=== PATIENT | male | born 1955 | race Caucasian/White ===

== ENCOUNTER 2017-05-07 13:00 | Inpatient (IN) | payer MEDICARE, OTHER ==
[~2017-05-07] VITALS: Ht 182.9 cm; Wt 77.3 kg
[2017-05-07] MEDS ORDERED: OXYcodone/APAP 10/325MG TABLET ONE (13:27)
[2017-05-07] MEDS ORDERED: OXYcodone/APAP 10/325MG TABLET PO ONE (13:30)
[2017-05-07] MEDS ORDERED: SODIUM CHLORIDE FLUSH 10ML SYR IVF ONE (13:30)
[2017-05-07 14:16] LABS: BASOPHILS # (AUTO) 0.07 x10^3/uL (0-0.1); BASOPHILS % (AUTO) 1 % (0-1); EOSINOPHILS # (AUTO) 0.27 x10^3/uL (0-0.4); EOSINOPHILS % (AUTO) 4 % (1-7); HCT (SEDRATE) 40.7 % (39.2-51.8); LYMPHOCYTES # (AUTO) 1.95 x10^3/uL (1-3.4); LYMPHOCYTES % (AUTO) 25 % (22-44); MD NO; MEAN CORPUSCULAR HEMOGLOBIN 31.3 pg (27.5-34.5); MEAN CORPUSCULAR HGB CONC 34.5 g/dL (33.2-36.2); MEAN CORPUSCULAR VOLUME 90.7 fL (81-97); MEAN PLATELET VOLUME 7.6 fL (7.4-10.4); MONOCYTES # (AUTO) 0.54 x10^3/uL (0.2-0.8); MONOCYTES % (AUTO) 7 % (2-9); NEUTROPHILS % (AUTO) 63 % (42-75); PLATELET COUNT 276 x10^3/uL (130-400); RED BLOOD COUNT 4.48 x10^6/uL (4.38-5.82); RED CELL DISTRIBUTION WIDTH 13.1 % (9.4-14.8)
[2017-05-07 14:23] LABS: INTERNATIONAL NORMALIZED RATIO 0.96 (0.93-1.1)
[2017-05-07 14:32] LABS: ALANINE AMINOTRANSFERASE 14 U/L (12-78); ALBUMIN 3.2 g/dL (3.4-5.0); ANION GAP 9 mmol/L (5-15); C-REACTIVE PROTEIN, QUANT 0.34 mg/dL (0.02-0.49); CALCIUM 8.4 mg/dL (8.5-10.1); CHLORIDE 101 mmol/L (98-107); CREATININE 1.26 mg/dL (0.7-1.3)
[2017-05-07 14:34] LABS: ALKALINE PHOSPHATASE 94 U/L (45-117); BILIRUBIN,TOTAL 0.3 mg/dL (0.2-1.0)
[2017-05-07 15:32] LABS: SEDIMENTATION RATE 26 mm/hr (0-10)
[2017-05-07] MEDS ORDERED: INSULIN REGULAR 100 UNITS/ML, 3ML VIAL SQ-INSULIN ONE (16:00)
[2017-05-07] MEDS ORDERED: VANCOMYCIN PER PHARMACY MC ONE (16:00)
[2017-05-07] MEDS ORDERED: VANCOMYCIN 1,600 MG in SODIUM CHLORIDE 0.9% 250 ML IV ONE (16:30)
[2017-05-07] MEDS ORDERED: INSULIN REGULAR 100 UNITS/ML, 3ML VIAL ONE (16:36)
[2017-05-07] MEDS ORDERED: ATOR40TA78 PO (17:18)
[2017-05-07] MEDS ORDERED: METF500T4 PO (17:18)
[2017-05-07] MEDS ORDERED: DOCU100C33 PO (17:18)
[2017-05-07] MEDS ORDERED: CLOP75TA PO (17:18)
[2017-05-07] MEDS ORDERED: GABA600T2 PO (17:18)
[2017-05-07] MEDS ORDERED: ISOS10TA2 PO (17:18)
[2017-05-07] MEDS ORDERED: CHOL2000 PO (17:18)
[2017-05-07] MEDS ORDERED: IBUP200T49 PO (17:18)
[2017-05-07] MEDS ORDERED: AMIT25TA PO (17:18)
[2017-05-07] MEDS ORDERED: HYDR50TA13 PO (17:18)
[2017-05-07] MEDS ORDERED: GLIP10TA13 PO (17:18)
[2017-05-07] MEDS: SODIUM CHLORIDE 0.9% 1,000 ML IV SCH (18:11)
[2017-05-07] MEDS ORDERED: TEMAZEPAM 15 MG CAPSULE PO PRN (18:30)
[2017-05-07] MEDS ORDERED: ONDANSETRON 2MG/ML, 2ML IVPush PRN (18:30)
[2017-05-07] MEDS ORDERED: ACETAMINOPHEN 325 MG TABLET PO PRN (18:30)
[2017-05-07] MEDS: METOPROLOL TARTRATE 25 MG TABLET PO SCH (18:30)
[2017-05-07] MEDS ORDERED: hydrALAzine 20 MG/ML, 1ML IVPush PRN (18:30)
[2017-05-07 18:49] LABS: FREE T4 (FREE THYROXINE) 1.13 ng/dL (0.76-1.46); THYROID STIMULATING HORMONE 1.21 mIU/L (0.358-3.740)
[2017-05-07] MEDS ORDERED: METOPROLOL TARTRATE 50 MG TABLET ONE (20:55)
[2017-05-07] MEDS ORDERED: ENOXAPARIN 40 MG/0.4 ML ONE (20:56)
[2017-05-07] MEDS ORDERED: SIMVASTATIN 20 MG TABLET PO SCH (21:00)
[2017-05-07] MEDS: GABAPENTIN 300 MG CAPSULE PO SCH (21:28)
[2017-05-07] MEDS: AMITRIPTYLINE 25 MG TABLET PO SCH (21:34)
[2017-05-07] MEDS: ENOXAPARIN 40 MG/0.4 ML SQ SCH (21:39)
[2017-05-07 23:30] VITALS: BP 105/66
[2017-05-08] MEDS: LINEZOLID PMX 600MG/300ML 300 ML IV SCH ×3 (00:11→21:23)
[2017-05-08] MEDS: INSULIN ASPART 100 UNITS/ML, PEN SQ-INSULIN SCH ×5 (00:25→21:00)
[2017-05-08] MEDS: ATORVASTATIN 40 MG TABLET PO SCH ×2 (00:37→21:00)
[2017-05-08] MEDS: morphine SULFATE 10 MG/ML, 1ML IVPush PRN ×2 (00:37→09:06)
[2017-05-08 02:00] VITALS: BP 122/72
[2017-05-08 05:40] LABS: BASOPHILS # (AUTO) 0.08 x10^3/uL (0-0.1); BASOPHILS % (AUTO) 1 % (0-1); EOSINOPHILS % (AUTO) 6 % (1-7); LYMPHOCYTES # (AUTO) 1.68 x10^3/uL (1-3.4); LYMPHOCYTES % (AUTO) 25 % (22-44); MD NO; MEAN CORPUSCULAR HEMOGLOBIN 31.5 pg (27.5-34.5); MEAN CORPUSCULAR HGB CONC 34.6 g/dL (33.2-36.2); MEAN CORPUSCULAR VOLUME 90.9 fL (81-97); MEAN PLATELET VOLUME 7.9 fL (7.4-10.4); MONOCYTES # (AUTO) 0.39 x10^3/uL (0.2-0.8); MONOCYTES % (AUTO) 6 % (2-9); NEUTROPHILS # (AUTO) 4.17 x10^3/uL (1.8-6.8); NEUTROPHILS % (AUTO) 62 % (42-75); PLATELET COUNT 239 x10^3/uL (130-400); RED BLOOD COUNT 4.59 x10^6/uL (4.38-5.82); RED CELL DISTRIBUTION WIDTH 12.8 % (9.4-14.8)
[2017-05-08] MEDS: METOPROLOL TARTRATE 25 MG TABLET PO SCH ×2 (06:08→17:55)
[2017-05-08 06:16] LABS: ALANINE AMINOTRANSFERASE 17 U/L (12-78); ALBUMIN 2.7 g/dL (3.4-5.0); ANION GAP 10 mmol/L (5-15); CALCIUM 8.2 mg/dL (8.5-10.1); CHLORIDE 111 mmol/L (98-107); CHOLESTEROL, TOTAL 144 mg/dL (140-239); CREATININE 0.82 mg/dL (0.7-1.3)
[2017-05-08 06:18] LABS: ALKALINE PHOSPHATASE 104 U/L (45-117); BILIRUBIN,TOTAL 0.3 mg/dL (0.2-1.0); CHOL/HDL RATIO 4.5; HDL CHOL % 22 % (26-37); HDL CHOLESTEROL (DIRECT) 32 mg/dL (40-60); LDL CHOLESTEROL,CALCULATED 63 mg/dL (54-169); TOTAL PROTEIN 6.6 g/dL (6.4-8.2); TRIGLYCERIDES 243 mg/dL (50-200); VLDL CHOLESTEROL 49 mg/dL (0-25)
[2017-05-08 07:02] LABS: HEMOGLOBIN A1C 10.4 % (4.2-6.3)
[2017-05-08 08:00] VITALS: BP 122/72
[2017-05-08] MEDS: DOCUSATE 100 MG CAPSULE PO SCH (10:43)
[2017-05-08] MEDS: SODIUM CHLORIDE 0.9% 1,000 ML IV SCH ×3 (10:43→21:24)
[2017-05-08] MEDS: ISOSORBIDE DINITRATE 10 MG TABLET PO SCH (10:44)
[2017-05-08] MEDS: GABAPENTIN 300 MG CAPSULE PO SCH ×3 (10:44→21:24)
[2017-05-08] MEDS: CHOLECALCIFEROL 1,000 UNIT TABLET PO SCH (10:44)
[2017-05-08] MEDS: CLOPIDOGREL 75 MG TABLET PO SCH (10:44)
[2017-05-08 14:34] VITALS: BP 92/48
[2017-05-08] MEDS: ENOXAPARIN 40 MG/0.4 ML SQ SCH (17:59)
[2017-05-08 20:00] VITALS: BP 99/59
[2017-05-08] MEDS: AMITRIPTYLINE 25 MG TABLET PO SCH (21:24)
[2017-05-09 02:00] VITALS: BP 110/62
[2017-05-09] MEDS: METOPROLOL TARTRATE 25 MG TABLET PO SCH ×2 (05:17→18:11)
[2017-05-09 06:33] VITALS: BP 113/62
[2017-05-09 06:34] LABS: ANION GAP 7 mmol/L (5-15); CHLORIDE 112 mmol/L (98-107)
[2017-05-09 06:36] LABS: CREATININE 0.71 mg/dL (0.7-1.3)
[2017-05-09] MEDS: INSULIN ASPART 100 UNITS/ML, PEN SQ-INSULIN SCH ×4 (07:00→21:00)
[2017-05-09] MEDS: SODIUM CHLORIDE 0.9% 1,000 ML IV SCH ×2 (09:29→20:57)
[2017-05-09] MEDS: GABAPENTIN 300 MG CAPSULE PO SCH ×3 (09:29→22:02)
[2017-05-09] MEDS: DOCUSATE 100 MG CAPSULE PO SCH (09:29)
[2017-05-09] MEDS: CHOLECALCIFEROL 1,000 UNIT TABLET PO SCH (09:29)
[2017-05-09] MEDS: ISOSORBIDE DINITRATE 10 MG TABLET PO SCH (09:29)
[2017-05-09] MEDS: LINEZOLID PMX 600MG/300ML 300 ML IV SCH ×2 (09:29→22:02)
[2017-05-09] MEDS: CLOPIDOGREL 75 MG TABLET PO SCH (09:29)
[2017-05-09] MEDS: HYDROcodone/APAP 5/325 TABLET PO PRN ×2 (11:24→22:02)
[2017-05-09 13:47] VITALS: BP 98/60
[2017-05-09] MEDS: ENOXAPARIN 40 MG/0.4 ML SQ SCH (18:11)
[2017-05-09 19:31] VITALS: BP 101/61
[2017-05-09] MEDS: ATORVASTATIN 40 MG TABLET PO SCH (22:02)
[2017-05-09] MEDS: AMITRIPTYLINE 25 MG TABLET PO SCH (22:02)
[2017-05-10 02:46] VITALS: BP 126/69
[2017-05-10] MEDS: HYDROcodone/APAP 5/325 TABLET PO PRN (02:57)
[2017-05-10] MEDS: morphine SULFATE 10 MG/ML, 1ML IVPush PRN (03:24)
[2017-05-10 05:15] VITALS: BP 120/69
[2017-05-10] MEDS: METOPROLOL TARTRATE 25 MG TABLET PO SCH ×2 (07:18→18:20)
[2017-05-10 07:37] VITALS: BP 120/70
[2017-05-10] MEDS: DOCUSATE 100 MG CAPSULE PO SCH (09:18)
[2017-05-10] MEDS: CLOPIDOGREL 75 MG TABLET PO SCH (09:18)
[2017-05-10] MEDS: GABAPENTIN 300 MG CAPSULE PO SCH ×3 (09:19→21:57)
[2017-05-10] MEDS: SODIUM CHLORIDE 0.9% 1,000 ML IV SCH ×2 (09:19→18:22)
[2017-05-10] MEDS: CHOLECALCIFEROL 1,000 UNIT TABLET PO SCH (09:19)
[2017-05-10] MEDS: LINEZOLID PMX 600MG/300ML 300 ML IV SCH (09:19)
[2017-05-10] MEDS: INSULIN ASPART 100 UNITS/ML, PEN SQ-INSULIN SCH ×4 (09:20→21:58)
[2017-05-10] MEDS: ISOSORBIDE DINITRATE 10 MG TABLET PO SCH (09:21)
[2017-05-10 14:00] VITALS: BP 116/66
[2017-05-10] MEDS ORDERED: LINE600T37 PO (16:23)
[2017-05-10] MEDS ORDERED: METO25TA35 PO (16:23)
[2017-05-10 18:20] VITALS: BP 138/81
[2017-05-10] MEDS: ENOXAPARIN 40 MG/0.4 ML SQ SCH (18:20)
[2017-05-10 21:00] VITALS: BP 118/68
[2017-05-10] MEDS: AMITRIPTYLINE 25 MG TABLET PO SCH (21:57)
[2017-05-10] MEDS: ATORVASTATIN 40 MG TABLET PO SCH (21:57)
[2017-05-10] MEDS: LINEZOLID 600 MG TABLET PO SCH (21:58)
[2017-05-11 00:57] VITALS: BP 121/63
[2017-05-11] MEDS: SODIUM CHLORIDE 0.9% 1,000 ML IV SCH ×3 (01:00→16:46)
[2017-05-11 05:52] VITALS: BP 131/77
[2017-05-11] MEDS: METOPROLOL TARTRATE 25 MG TABLET PO SCH ×2 (06:14→18:37)
[2017-05-11] MEDS: ISOSORBIDE DINITRATE 10 MG TABLET PO SCH (08:36)
[2017-05-11] MEDS: GABAPENTIN 300 MG CAPSULE PO SCH ×3 (08:37→21:56)
[2017-05-11] MEDS: CLOPIDOGREL 75 MG TABLET PO SCH (08:37)
[2017-05-11] MEDS: INSULIN ASPART 100 UNITS/ML, PEN SQ-INSULIN SCH ×4 (08:37→22:37)
[2017-05-11] MEDS: CHOLECALCIFEROL 1,000 UNIT TABLET PO SCH (08:37)
[2017-05-11] MEDS: LINEZOLID 600 MG TABLET PO SCH ×2 (08:37→21:56)
[2017-05-11 08:51] VITALS: BP 134/76
[2017-05-11] MEDS: DOCUSATE 100 MG CAPSULE PO SCH (09:00)
[2017-05-11 14:00] VITALS: BP 134/70
[2017-05-11] MEDS: ENOXAPARIN 40 MG/0.4 ML SQ SCH (18:38)
[2017-05-11 21:13] VITALS: BP 132/75
[2017-05-11] MEDS: ATORVASTATIN 40 MG TABLET PO SCH (21:56)
[2017-05-11] MEDS: AMITRIPTYLINE 25 MG TABLET PO SCH (21:56)
[2017-05-12 00:34] VITALS: BP 126/73
[2017-05-12] MEDS: SODIUM CHLORIDE 0.9% 1,000 ML IV SCH ×3 (01:00→16:10)
[2017-05-12 06:09] VITALS: BP 145/74
[2017-05-12] MEDS: METOPROLOL TARTRATE 25 MG TABLET PO SCH ×2 (06:16→17:24)
[2017-05-12] MEDS: INSULIN ASPART 100 UNITS/ML, PEN SQ-INSULIN SCH ×4 (07:00→20:25)
[2017-05-12] MEDS: DOCUSATE 100 MG CAPSULE PO SCH (08:04)
[2017-05-12 08:25] VITALS: BP 146/75
[2017-05-12] MEDS: ISOSORBIDE DINITRATE 10 MG TABLET PO SCH (09:08)
[2017-05-12] MEDS: CLOPIDOGREL 75 MG TABLET PO SCH (09:08)
[2017-05-12] MEDS: LINEZOLID 600 MG TABLET PO SCH ×2 (09:08→20:23)
[2017-05-12] MEDS: GABAPENTIN 300 MG CAPSULE PO SCH ×3 (09:08→20:22)
[2017-05-12] MEDS: CHOLECALCIFEROL 1,000 UNIT TABLET PO SCH (09:08)
[2017-05-12] MEDS ORDERED: ONDANSETRON ODT 4 MG PO PRN (14:00)
[2017-05-12 15:49] VITALS: BP 115/65
[2017-05-12] MEDS: ENOXAPARIN 40 MG/0.4 ML SQ SCH (17:24)
[2017-05-12] MEDS: AMITRIPTYLINE 25 MG TABLET PO SCH (20:22)
[2017-05-12] MEDS: ATORVASTATIN 40 MG TABLET PO SCH (20:23)
[2017-05-12 21:30] VITALS: BP 131/75
[2017-05-13] MEDS: SODIUM CHLORIDE 0.9% 1,000 ML IV SCH ×2 (01:00→08:46)
[2017-05-13 02:03] VITALS: BP 114/72
[2017-05-13] MEDS: METOPROLOL TARTRATE 25 MG TABLET PO SCH (06:25)
[2017-05-13] MEDS: INSULIN ASPART 100 UNITS/ML, PEN SQ-INSULIN SCH ×2 (07:00→11:46)
[2017-05-13] MEDS: LINEZOLID 600 MG TABLET PO SCH (08:46)
[2017-05-13] MEDS: CHOLECALCIFEROL 1,000 UNIT TABLET PO SCH (08:46)
[2017-05-13] MEDS: ISOSORBIDE DINITRATE 10 MG TABLET PO SCH (08:47)
[2017-05-13] MEDS: GABAPENTIN 300 MG CAPSULE PO SCH (08:47)
[2017-05-13] MEDS: CLOPIDOGREL 75 MG TABLET PO SCH (08:47)
[2017-05-13] MEDS: DOCUSATE 100 MG CAPSULE PO SCH (08:47)
[2017-05-13] MEDS: HYDROcodone/APAP 5/325 TABLET PO PRN (13:16)
[2017-05-13 14:25] VITALS: BP 115/64
[2017-05-13] MEDS ORDERED: ISOS10TA2 PO (15:46)
[2017-05-13] MEDS ORDERED: METF500T4 PO (15:46)
== END 2017-05-13 16:59 | disposition home or self-care (01) | DRG 300 ==
LOC: ED 13:32 → EDIP 15:37 → 4WST 22:27
PROVIDERS: ADMIT Family Medicine; ATTEND Family Medicine
DX: E11.51 Type 2 diabetes mellitus with diabetic peripheral angiopathy without gangrene (principal); L03.116 Cellulitis of left lower limb; E11.621 Type 2 diabetes mellitus with foot ulcer; E87.2 Acidosis; E11.65 Type 2 diabetes mellitus with hyperglycemia; E11.00 Type 2 diabetes mellitus with hyperosmolarity without nonketotic hyperglycemic-hyperosmolar coma (NKHHC); L97.529 Non-pressure chronic ulcer of other part of left foot with unspecified severity; I10 Essential (primary) hypertension; E78.5 Hyperlipidemia, unspecified; I25.10 Atherosclerotic heart disease of native coronary artery without angina pectoris; J44.9 Chronic obstructive pulmonary disease, unspecified; E11.622 Type 2 diabetes mellitus with other skin ulcer; Z72.0 Tobacco use; Z86.14 Personal history of Methicillin resistant Staphylococcus aureus infection; Z95.1 Presence of aortocoronary bypass graft; Z95.5 Presence of coronary angioplasty implant and graft; Z88.0 Allergy status to penicillin; Z88.5 Allergy status to narcotic agent; Z88.8 Allergy status to other drugs, medicaments and biological substances
CPT/HCPCS: 36415; 80048; 80053; 80061; 82962; 83036; 83605; 83735; 84100; 84439; 84443; 85025; 85610; 85651; 86140; 87040; 87070; 87077; 87186; 87205; 93922; 96372; J1650; J1815; J2020; J2405; J3370; Q0162; J2270; J7030; J7050

== ENCOUNTER 2017-06-04 17:55 | Emergency (ER) | payer MEDICARE, OTHER ==
[~2017-06-04] VITALS: Ht 182.9 cm; Wt 77.5 kg
[~2017-06-04 17:55] MED LIST: AMIT25TA PO; ATOR40TA78 PO; CHOL2000 PO; CLOP75TA PO; DOCU100C33 PO; GABA600T2 PO; GLIP10TA13 PO; HYDR50TA13 PO; IBUP200T49 PO; ISOS10TA2 PO; LINE600T37 PO; METF500T4 PO; METO25TA35 PO
[2017-06-04 18:00] VITALS: BP 135/84
[2017-06-04] MEDS ORDERED: SODIUM CHLORIDE FLUSH 10ML SYR IVF ONE ×2 (18:30→19:00)
[2017-06-04] MEDS ORDERED: NITROGLYCERIN SINGLE TAB 0.4 MG SL PRN (18:30)
[2017-06-04] MEDS ORDERED: PLEASE ENTER HEIGHT AND WEIGHT MC SCH (18:30)
[2017-06-04] MEDS ORDERED: ASPIRIN 81 MG TABLET CHEW PO ONE (18:30)
[2017-06-04 18:36] LABS: BASOPHILS # (AUTO) 0.09 x10^3/uL (0-0.1); BASOPHILS % (AUTO) 1 % (0-1); EOSINOPHILS # (AUTO) 0.21 x10^3/uL (0-0.4); EOSINOPHILS % (AUTO) 3 % (1-7); LYMPHOCYTES # (AUTO) 2.68 x10^3/uL (1-3.4); LYMPHOCYTES % (AUTO) 34 % (22-44); MD NO; MEAN CORPUSCULAR HGB CONC 34.3 g/dL (33.2-36.2); MEAN CORPUSCULAR VOLUME 90.5 fL (81-97); MEAN PLATELET VOLUME 7.2 fL (7.4-10.4); MONOCYTES # (AUTO) 0.48 x10^3/uL (0.2-0.8); MONOCYTES % (AUTO) 6 % (2-9); NEUTROPHILS # (AUTO) 4.37 x10^3/uL (1.8-6.8); NEUTROPHILS % (AUTO) 56 % (42-75); PLATELET COUNT 337 x10^3/uL (130-400); RED BLOOD COUNT 4.57 x10^6/uL (4.38-5.82); RED CELL DISTRIBUTION WIDTH 13.6 % (9.4-14.8)
[2017-06-04] MEDS ORDERED: MORPHINE SULFATE 4 MG/ML, 1ML ONE (18:36)
[2017-06-04] MEDS ORDERED: ASPIRIN 81 MG TABLET CHEW ONE (18:36)
[2017-06-04] MEDS ORDERED: ONDANSETRON 2MG/ML, 2ML ONE (18:36)
[2017-06-04 18:52] LABS: ALBUMIN 3.4 g/dL (3.4-5.0); ANION GAP 11 mmol/L (5-15); CALCIUM 8.6 mg/dL (8.5-10.1); CHLORIDE 104 mmol/L (98-107)
[2017-06-04 18:57] LABS: CREATININE 1.05 mg/dL (0.7-1.3)
[2017-06-04] MEDS ORDERED: SODIUM CHLORIDE 0.9% 1,000ML IVBOLUS ONE (19:00)
[2017-06-04] MEDS ORDERED: ONDANSETRON 2MG/ML, 2ML IVPush ONE (19:00)
[2017-06-04] MEDS ORDERED: MORPHINE SULFATE 4 MG/ML, 1ML IVPush PRN (19:00)
== END 2017-06-04 18:47 | disposition left against medical advice (07) ==
LOC: ED 18:41
DX: R07.9 Chest pain, unspecified (principal); I25.2 Old myocardial infarction; I10 Essential (primary) hypertension; I25.10 Atherosclerotic heart disease of native coronary artery without angina pectoris; J44.9 Chronic obstructive pulmonary disease, unspecified; Z95.1 Presence of aortocoronary bypass graft
CPT/HCPCS: 36415; 71045; 80048; 82040; 83880; 84484; 85025; 93005; 99285

== ENCOUNTER 2017-10-12 15:37 | Emergency (ER) | payer MEDICARE, OTHER ==
[~2017-10-12] VITALS: Ht 182.9 cm; Wt 87.3 kg
[2017-10-12 15:45] VITALS: BP 119/75
[2017-10-12] MEDS ORDERED: [UNRECOGNIZED DRUG - REMARK] PO (16:01)
[2017-10-12] MEDS ORDERED: [UNRECOGNIZED DRUG - CODE] SL (16:01)
[2017-10-12] MEDS ORDERED: LISI2.5T PO (16:01)
[2017-10-12 16:22] LABS: BASOPHILS # (AUTO) 0.07 x10^3/uL (0-0.1); BASOPHILS % (AUTO) 1 % (0-1); EOSINOPHILS # (AUTO) 0.26 x10^3/uL (0-0.4); EOSINOPHILS % (AUTO) 3 % (1-7); LYMPHOCYTES # (AUTO) 2.37 x10^3/uL (1-3.4); LYMPHOCYTES % (AUTO) 30 % (22-44); MD NO; MEAN CORPUSCULAR HEMOGLOBIN 30.8 pg (27.5-34.5); MEAN CORPUSCULAR HGB CONC 34.4 g/dL (33.2-36.2); MEAN CORPUSCULAR VOLUME 89.6 fL (81-97); MEAN PLATELET VOLUME 6.9 fL (7.4-10.4); MONOCYTES # (AUTO) 0.59 x10^3/uL (0.2-0.8); MONOCYTES % (AUTO) 7 % (2-9); NEUTROPHILS # (AUTO) 4.62 x10^3/uL (1.8-6.8); NEUTROPHILS % (AUTO) 59 % (42-75); PLATELET COUNT 317 x10^3/uL (130-400); RED BLOOD COUNT 4.86 x10^6/uL (4.38-5.82); RED CELL DISTRIBUTION WIDTH 13.1 % (9.4-14.8)
[2017-10-12 16:29] LABS: INTERNATIONAL NORMALIZED RATIO 0.99 (0.93-1.1); PROTHROMBIN TIME 10.2 Seconds (9.6-11.5)
[2017-10-12 16:33] LABS: ALANINE AMINOTRANSFERASE 20 U/L (12-78); ALBUMIN 3.7 g/dL (3.4-5.0); ANION GAP 10 mmol/L (5-15); CALCIUM 8.5 mg/dL (8.5-10.1); CHLORIDE 103 mmol/L (98-107); CREATININE 1.24 mg/dL (0.7-1.3)
[2017-10-12 16:36] LABS: ALKALINE PHOSPHATASE 92 U/L (45-117); BILIRUBIN,TOTAL 1.3 mg/dL (0.2-1.0); TOTAL PROTEIN 6.9 g/dL (6.4-8.2); TROPONIN I < 0.015 ng/mL (0.000-0.045)
[2017-10-12] MEDS ORDERED: MORPHINE SULFATE 4 MG/ML, 1ML ONE (16:43)
[2017-10-12] MEDS ORDERED: MORPHINE SULFATE 4 MG/ML, 1ML IVPush ONE (17:00)
== END 2017-10-12 17:10 | disposition left against medical advice (07) ==
LOC: ED 16:00
DX: R07.89 Other chest pain (principal); E11.9 Type 2 diabetes mellitus without complications; J44.9 Chronic obstructive pulmonary disease, unspecified; I10 Essential (primary) hypertension; E78.5 Hyperlipidemia, unspecified; I25.2 Old myocardial infarction; F17.200 Nicotine dependence, unspecified, uncomplicated
CPT/HCPCS: 36415; 71045; 80053; 83880; 84484; 85025; 85610; 93005; 96374

== ENCOUNTER 2018-05-06 02:12 | Inpatient (IN) | payer MEDICARE, OTHER ==
[~2018-05-06] VITALS: Ht 172.7 cm; Wt 62.5 kg
[~2018-05-06 02:12] MED LIST changes: -GABA600T2 PO; +GABA600T7 PO; +LISI2.5T PO; +METF500T17 PO; -METF500T4 PO; +[UNRECOGNIZED DRUG - CODE] SL; +[UNRECOGNIZED DRUG - REMARK] PO
--- NOTE | 2018-05-06 02:17 | NUR ---
EKG DONE ON ARRIVAL
--- NOTE | 2018-05-06 02:27 | NUR ---
PT BIB [facility] WITH C/O SYNCOPE AND WEAKNESS X 2 DAYS, PT ALSO C/O CONSTIPATION X 5 DAYS, PT TALKATIVE AND PLEASENT IN NAD VSS
--- NOTE | 2018-05-06 02:29 | NUR ---
HOSPITAL GLUCOMETER READS HIGH
[2018-05-06] MEDS ORDERED: METHYLNALTREXONE 12 MG/0.6 ML SQ ONE ×2 (02:30→04:19)
[2018-05-06 02:40] LABS: BASOPHILS # (AUTO) 0.01 x10^3/uL (0-0.1); BASOPHILS % (AUTO) 0 % (0-1); EOSINOPHILS % (AUTO) 0 % (1-7); LYMPHOCYTES # (AUTO) 0.49 x10^3/uL (1-3.4); LYMPHOCYTES % (AUTO) 4 % (22-44); MD NO; MEAN CORPUSCULAR HEMOGLOBIN 29.1 pg (27.5-34.5); MEAN CORPUSCULAR VOLUME 85.5 fL (81-97); MEAN PLATELET VOLUME 6.3 fL (7.4-10.4); MONOCYTES # (AUTO) 0.38 x10^3/uL (0.2-0.8); MONOCYTES % (AUTO) 3 % (2-9); NEUTROPHILS # (AUTO) 12.58 x10^3/uL (1.8-6.8); NEUTROPHILS % (AUTO) 94 % (42-75); PH, VENOUS 7.407 pH (7.320-7.420); PLATELET COUNT 369 x10^3/uL (130-400); RED BLOOD COUNT 5.12 x10^6/uL (4.38-5.82); RED CELL DISTRIBUTION WIDTH 13.4 % (9.4-14.8)
[2018-05-06 02:53] LABS: ALBUMIN 2.5 g/dL (3.4-5.0); ANION GAP 16 mmol/L (5-15); CALCIUM 8.1 mg/dL (8.5-10.1); CHLORIDE 89 mmol/L (98-107); CREATININE 1.23 mg/dL (0.7-1.3)
[2018-05-06 02:57] LABS: ACETONE, SERUM Moderate(40mg/dL) mg/dL (Negative); TROPONIN I < 0.015 ng/mL (0.000-0.045)
[2018-05-06 02:58] LABS: ALANINE AMINOTRANSFERASE 12 U/L (12-78); ALKALINE PHOSPHATASE 119 U/L (45-117); BILIRUBIN,TOTAL 0.7 mg/dL (0.2-1.0); HCT (SEDRATE) 43.8 % (39.2-51.8); TOTAL PROTEIN 7.7 g/dL (6.4-8.2)
[2018-05-06 02:59] LABS: MICROSCOPIC INDICATED
[2018-05-06 03:16] LABS: CULTURE INDICATED? NO
[2018-05-06] MEDS ORDERED: CEFTRIAXONE 1,000 MG in SODIUM CHLORIDE 0.9% 50 ML IVPB ONE (04:00)
[2018-05-06] MEDS ORDERED: SODIUM CHLORIDE 0.9% 1,000ML IVBOLUS ONE (04:00)
[2018-05-06] MEDS ORDERED: VANCOMYCIN PER PHARMACY IV ONE (04:00)
[2018-05-06] MEDS ORDERED: INSULIN REGULAR 100 UNITS/ML, 3ML VIAL ONE (04:07)
[2018-05-06] MEDS ORDERED: CIPROFLOXACIN/PMX 400MG/200ML 200 ML ONE (04:18)
--- NOTE | 2018-05-06 04:18 | NUR ---
TP RN: [facility] IS [facility].
--- NOTE | 2018-05-06 04:18 | NUR ---
[facility] in [facility] - 05/06/18 at 0418 by DANIELLE [id number]
[2018-05-06] MEDS ORDERED: INSULIN REGULAR 100 UNITS/ML, 3ML VIAL SQ-INSULIN ONE (04:30)
[2018-05-06] MEDS ORDERED: VANCOMYCIN 1,200 MG in SODIUM CHLORIDE 0.9% 250 ML IV ONE (04:30)
[2018-05-06] MEDS ORDERED: CIPROFLOXACIN/PMX 400MG/200ML 200 ML IV ONE (04:30)
[2018-05-06] MEDS ORDERED: ONDANSETRON 2MG/ML, 2ML IVPush PRN (05:00)
[2018-05-06] MEDS ORDERED: VANCOMYCIN PER PHARMACY MC PRN (05:00)
[2018-05-06] MEDS ORDERED: ENOXAPARIN 40 MG/0.4 ML SQ SCH (05:00)
[2018-05-06] MEDS ORDERED: INSULIN GLARGINE 100 UNITS/ML, PEN SQ-INSULIN ONE (05:00)
[2018-05-06] MEDS ORDERED: ONDANSETRON ODT 4 MG PO PRN (05:00)
--- NOTE | 2018-05-06 05:14 | NUR ---
REPORT TO [facility] PT TO FLOOR WITH TECH
[2018-05-06 05:38] VITALS: BP 99/63
[2018-05-06 05:41] LABS: TROPONIN I < 0.015 ng/mL (0.000-0.045)
[2018-05-06 05:50] LABS: HEMOGLOBIN A1C 12.8 % (4.2-6.3)
[2018-05-06] MEDS: SODIUM CHLORIDE 0.9% 1,000 ML IV SCH (05:53)
[2018-05-06] MEDS ORDERED: PHARMACOKINETIC CONSULTATION MC ONE (06:00)
[2018-05-06] MEDS ORDERED: LOVENOX/HEPARIN MC SCH (06:00)
[2018-05-06] MEDS ORDERED: PHARMACOKINETIC MONITORING MC PRN (06:00)
[2018-05-06 07:23] VITALS: BP 101/62
[2018-05-06] MEDS: POLYETHYLENE GLYCOL 17 GM PACKET PO SCH (07:57)
[2018-05-06] MEDS: INSULIN LISPRO 100 UNITS/ML, PEN SQ-INSULIN SCH ×4 (09:41→21:03)
[2018-05-06] MEDS: ACETAMINOPHEN 325 MG TABLET PO PRN ×2 (09:41→17:55)
[2018-05-06] MEDS: MEROPENEM 1 GM in SODIUM CHLORIDE 0.9% 100 ML IV SCH ×2 (09:42→16:19)
[2018-05-06 09:53] LABS: TROPONIN I < 0.015 ng/mL (0.000-0.045)
[2018-05-06] MEDS ORDERED: GADOBUTROL 7.5 MMOL/7.5 ML PFS ONE (12:54)
[2018-05-06 13:55] VITALS: BP 107/68
[2018-05-06] MEDS: GABAPENTIN 300 MG CAPSULE PO SCH ×2 (16:18→21:04)
[2018-05-06] MEDS: METOPROLOL TARTRATE 25 MG TABLET PO SCH (16:18)
[2018-05-06] MEDS ORDERED: HYDR50TA13 PO (18:37)
[2018-05-06] MEDS ORDERED: GABA300C10 PO (18:37)
[2018-05-06] MEDS ORDERED: INSULIN GLARGINE 100 UNITS/ML, PEN SQ-INSULIN SCH (21:00)
[2018-05-06 21:02] VITALS: BP 111/70
[2018-05-06] MEDS: AMITRIPTYLINE 25 MG TABLET PO SCH (21:04)
[2018-05-06] MEDS: ATORVASTATIN 40 MG TABLET PO SCH (21:04)
[2018-05-07] MEDS: MEROPENEM 1 GM in SODIUM CHLORIDE 0.9% 100 ML IV SCH ×3 (01:03→18:10)
[2018-05-07] MEDS: SODIUM CHLORIDE 0.9% 1,000 ML IV SCH ×2 (01:03→10:49)
[2018-05-07 01:19] VITALS: BP 99/67
[2018-05-07 05:27] LABS: MEAN CORPUSCULAR HEMOGLOBIN 28.4 pg (27.5-34.5); MEAN CORPUSCULAR VOLUME 85.9 fL (81-97); MEAN PLATELET VOLUME 6.4 fL (7.4-10.4); PLATELET COUNT 338 x10^3/uL (130-400); RED CELL DISTRIBUTION WIDTH 13.9 % (9.4-14.8)
[2018-05-07 05:47] LABS: CHLORIDE 104 mmol/L (98-107)
[2018-05-07] MEDS: VANCOMYCIN 1,200 MG in SODIUM CHLORIDE 0.9% 250 ML IV SCH (05:49)
[2018-05-07 05:52] VITALS: BP 111/70
[2018-05-07] MEDS: METOPROLOL TARTRATE 25 MG TABLET PO SCH ×2 (05:53→16:53)
[2018-05-07 05:57] LABS: ALANINE AMINOTRANSFERASE 10 U/L (12-78); ALKALINE PHOSPHATASE 119 U/L (45-117); ANION GAP 4 mmol/L (5-15); BILIRUBIN,TOTAL 0.4 mg/dL (0.2-1.0); CALCIUM 8.3 mg/dL (8.5-10.1); CREATININE 0.56 mg/dL (0.7-1.3); TOTAL PROTEIN 6.3 g/dL (6.4-8.2)
[2018-05-07 06:11] LABS: BASOPHILS % (AUTO) 0 % (0-1); EOSINOPHILS # (AUTO) 0.03 x10^3/uL (0-0.4); EOSINOPHILS % (AUTO) 0 % (1-7); LYMPHOCYTES # (AUTO) 0.92 x10^3/uL (1-3.4); LYMPHOCYTES % (AUTO) 6 % (22-44); MD SCAN; MONOCYTES # (AUTO) 0.74 x10^3/uL (0.2-0.8); MONOCYTES % (AUTO) 5 % (2-9); NEUTROPHILS # (AUTO) 12.78 x10^3/uL (1.8-6.8); NEUTROPHILS % (AUTO) 88 % (42-75)
[2018-05-07] MEDS ORDERED: MIDAZOLAM 1 MG/ML, 2ML ONE (06:20)
[2018-05-07] MEDS ORDERED: FENTANYL PF 100 MCG/2ML ONE (06:20)
[2018-05-07] MEDS ORDERED: PROPOFOL 10 MG/ML, 20ML ONE (06:22)
[2018-05-07 06:51] VITALS: BP 99/64
[2018-05-07] MEDS ORDERED: ONDANSETRON 2MG/ML, 2ML IV PRN (07:00)
[2018-05-07] MEDS ORDERED: HYDROmorphone 2 MG/ML, 1ML IVPush PRN (07:00)
[2018-05-07] MEDS ORDERED: MORPHINE SULFATE 4 MG/ML, 1ML IVPush PRN (07:00)
[2018-05-07] MEDS ORDERED: ONDANSETRON ODT 8 MG PO PRN (07:00)
[2018-05-07] MEDS ORDERED: FENTANYL PF 100 MCG/2ML IV PRN (07:00)
[2018-05-07] MEDS ORDERED: PROMETHAZINE 25 MG/ML, 1ML IM PRN ×2 (07:00)
[2018-05-07] MEDS ORDERED: PROMETHAZINE 25 MG/ML, 1ML IV PRN (07:00)
[2018-05-07] MEDS ORDERED: MEPERIDINE/PF 25MG/0.5ML IVPush PRN (07:00)
[2018-05-07] MEDS ORDERED: hydrALAzine 20 MG/ML, 1ML IV PRN (07:00)
[2018-05-07] MEDS ORDERED: ACETAMINOPHEN 325 MG TABLET PO PRN (07:00)
[2018-05-07] MEDS: INSULIN LISPRO 100 UNITS/ML, PEN SQ-INSULIN SCH ×4 (07:00→21:15)
[2018-05-07] MEDS ORDERED: LABETALOL 5MG/ML, 20ML IV PRN (07:00)
[2018-05-07] MEDS ORDERED: PROMETHAZINE 12.5 MG SUPP PR PRN (07:00)
[2018-05-07] MEDS ORDERED: PROMETHAZINE 25 MG SUPP PR PRN (07:00)
[2018-05-07] MEDS ORDERED: OXYcodone 5 MG/5 ML ORAL.SOL UDC PO PRN (07:00)
[2018-05-07] MEDS ORDERED: PHENYLEPHRINE 10 MG/ML ONE (07:17)
[2018-05-07] MEDS ORDERED: POTASSIUM CHLORIDE 40 MEQ in SODIUM CHLORIDE 0.9% 500 ML IV ONE (07:30)
[2018-05-07] MEDS ORDERED: ACETAMINOPHEN 650 MG/20.3 ML UDC ONE (08:35)
[2018-05-07] MEDS ORDERED: OXYcodone 5 MG/5 ML ORAL.SOL UDC ONE ×2 (08:36→08:39)
[2018-05-07] MEDS ORDERED: HYDROmorphone 2 MG/ML, 1ML ONE (08:39)
[2018-05-07 12:08] VITALS: BP 114/72
[2018-05-07] MEDS: GABAPENTIN 300 MG CAPSULE PO SCH ×3 (12:24→21:14)
[2018-05-07] MEDS: CHOLECALCIFEROL 1,000 UNIT TABLET PO SCH (12:25)
[2018-05-07] MEDS: ISOSORBIDE DINITRATE 10 MG TABLET PO SCH (12:25)
[2018-05-07] MEDS: CLOPIDOGREL 75 MG TABLET PO SCH (12:25)
[2018-05-07] MEDS: POTASSIUM CHLORIDE 20 MEQ TAB.ER.PRT PO SCH ×2 (12:25→16:53)
[2018-05-07] MEDS: POLYETHYLENE GLYCOL 17 GM PACKET PO SCH (12:25)
[2018-05-07 17:02] VITALS: BP 114/72
[2018-05-07] MEDS ORDERED: BISACODYL 10 MG SUPP PR PRN (18:00)
[2018-05-07] MEDS ORDERED: ALUMINUM/MAG/SIMETHICONE 30 ML UDC PO PRN (18:00)
[2018-05-07] MEDS ORDERED: SENNA/DOCUSATE TABLET PO PRN (18:00)
[2018-05-07] MEDS ORDERED: MAGNESIUM HYDROXIDE 8%, 30ML UDC PO PRN (18:00)
[2018-05-07] MEDS: POTASSIUM PHOSPHATE 22 MEQ in SODIUM CHLORIDE 0.9% 500 ML IV ONE ×2 (18:09→21:59)
[2018-05-07 20:44] VITALS: BP 98/63
[2018-05-07] MEDS ORDERED: INSULIN GLARGINE 100 UNITS/ML, PEN SQ-INSULIN SCH (21:00)
[2018-05-07] MEDS: DOCUSATE 100 MG CAPSULE PO SCH (21:13)
[2018-05-07] MEDS: AMITRIPTYLINE 25 MG TABLET PO SCH (21:14)
[2018-05-07] MEDS: OXYcodone/APAP 5/325MG TABLET PO PRN (21:14)
[2018-05-07] MEDS: ATORVASTATIN 40 MG TABLET PO SCH (21:14)
[2018-05-08] MEDS: OXYcodone/APAP 5/325MG TABLET PO PRN ×3 (01:57→17:03)
[2018-05-08 02:25] VITALS: BP 123/77
[2018-05-08] MEDS: MEROPENEM 1 GM in SODIUM CHLORIDE 0.9% 100 ML IV SCH ×2 (04:06→11:49)
[2018-05-08 05:49] LABS: BASOPHILS # (AUTO) 0.02 x10^3/uL (0-0.1); BASOPHILS % (AUTO) 0 % (0-1); EOSINOPHILS # (AUTO) 0.08 x10^3/uL (0-0.4); EOSINOPHILS % (AUTO) 1 % (1-7); LYMPHOCYTES # (AUTO) 1.24 x10^3/uL (1-3.4); LYMPHOCYTES % (AUTO) 9 % (22-44); MD NO; MEAN CORPUSCULAR HEMOGLOBIN 28.8 pg (27.5-34.5); MEAN CORPUSCULAR HGB CONC 33.4 g/dL (33.2-36.2); MEAN PLATELET VOLUME 6.8 fL (7.4-10.4); MONOCYTES # (AUTO) 0.44 x10^3/uL (0.2-0.8); MONOCYTES % (AUTO) 3 % (2-9); NEUTROPHILS # (AUTO) 12.19 x10^3/uL (1.8-6.8); NEUTROPHILS % (AUTO) 87 % (42-75); PLATELET COUNT 357 x10^3/uL (130-400); RED BLOOD COUNT 4.13 x10^6/uL (4.38-5.82); RED CELL DISTRIBUTION WIDTH 14.1 % (9.4-14.8)
[2018-05-08] MEDS: VANCOMYCIN 1,200 MG in SODIUM CHLORIDE 0.9% 250 ML IV SCH (05:51)
[2018-05-08] MEDS: METOPROLOL TARTRATE 25 MG TABLET PO SCH ×2 (05:58→16:57)
[2018-05-08] MEDS: ENOXAPARIN 30 MG/0.3 ML SQ SCH ×2 (05:59→17:04)
[2018-05-08 06:11] LABS: CHLORIDE 106 mmol/L (98-107)
[2018-05-08 06:20] LABS: ALANINE AMINOTRANSFERASE 12 U/L (12-78); ALBUMIN 1.8 g/dL (3.4-5.0); ALKALINE PHOSPHATASE 232 U/L (45-117); ANION GAP 6 mmol/L (5-15); BILIRUBIN,TOTAL 0.4 mg/dL (0.2-1.0); CREATININE 0.74 mg/dL (0.7-1.3); TOTAL PROTEIN 6.1 g/dL (6.4-8.2)
[2018-05-08 06:30] VITALS: BP 137/81
[2018-05-08] MEDS: CHOLECALCIFEROL 1,000 UNIT TABLET PO SCH (08:26)
[2018-05-08] MEDS: MULTIVITAMINS/MINERALS TABLET PO SCH (08:26)
[2018-05-08] MEDS: CLOPIDOGREL 75 MG TABLET PO SCH (08:26)
[2018-05-08] MEDS: GABAPENTIN 300 MG CAPSULE PO SCH ×3 (08:26→21:55)
[2018-05-08] MEDS: ISOSORBIDE DINITRATE 10 MG TABLET PO SCH (08:26)
[2018-05-08] MEDS: DOCUSATE 100 MG CAPSULE PO SCH ×2 (08:26→21:55)
[2018-05-08] MEDS: POTASSIUM CHLORIDE 20 MEQ TAB.ER.PRT PO SCH ×2 (08:26→16:58)
[2018-05-08] MEDS: INSULIN LISPRO 100 UNITS/ML, PEN SQ-INSULIN SCH ×4 (08:27→21:55)
[2018-05-08] MEDS: POLYETHYLENE GLYCOL 17 GM PACKET PO SCH (08:28)
[2018-05-08] MEDS: D5%-0.45% NACL+KCL 10MEQ 1,000 ML IV SCH (13:56)
[2018-05-08 14:00] VITALS: BP 110/68
[2018-05-08] MEDS: ERTAPENEM 1 GM in SODIUM CHLORIDE 0.9% 50 ML IV SCH (15:14)
[2018-05-08 19:39] VITALS: BP 112/68
[2018-05-08] MEDS: AMITRIPTYLINE 25 MG TABLET PO SCH (21:55)
[2018-05-08] MEDS: ATORVASTATIN 40 MG TABLET PO SCH (21:55)
[2018-05-09 01:29] VITALS: BP 130/74
[2018-05-09] MEDS: OXYcodone/APAP 5/325MG TABLET PO PRN ×4 (01:35→23:03)
[2018-05-09 05:37] LABS: BASOPHILS # (AUTO) 0.03 x10^3/uL (0-0.1); BASOPHILS % (AUTO) 0 % (0-1); EOSINOPHILS # (AUTO) 0.13 x10^3/uL (0-0.4); EOSINOPHILS % (AUTO) 1 % (1-7); LYMPHOCYTES % (AUTO) 11 % (22-44); MD NO; MEAN CORPUSCULAR HEMOGLOBIN 28.6 pg (27.5-34.5); MEAN CORPUSCULAR HGB CONC 33.5 g/dL (33.2-36.2); MEAN CORPUSCULAR VOLUME 85.5 fL (81-97); MEAN PLATELET VOLUME 6.2 fL (7.4-10.4); MONOCYTES # (AUTO) 0.19 x10^3/uL (0.2-0.8); MONOCYTES % (AUTO) 1 % (2-9); NEUTROPHILS % (AUTO) 87 % (42-75); PLATELET COUNT 418 x10^3/uL (130-400); RED BLOOD COUNT 4.28 x10^6/uL (4.38-5.82); RED CELL DISTRIBUTION WIDTH 14.4 % (9.4-14.8)
[2018-05-09 05:45] LABS: ANION GAP 5 mmol/L (5-15); CALCIUM 8.5 mg/dL (8.5-10.1); CHLORIDE 101 mmol/L (98-107); CREATININE 1.02 mg/dL (0.7-1.3)
[2018-05-09 05:46] LABS: VANCOMYCIN,TROUGH 7.5 mcg/mL (5.0-10.0)
[2018-05-09] MEDS: ENOXAPARIN 30 MG/0.3 ML SQ SCH ×2 (06:18→17:25)
[2018-05-09] MEDS: VANCOMYCIN 1,200 MG in SODIUM CHLORIDE 0.9% 250 ML IV SCH ×2 (06:18→22:04)
[2018-05-09] MEDS: METOPROLOL TARTRATE 25 MG TABLET PO SCH ×2 (06:18→17:24)
[2018-05-09] MEDS: POTASSIUM CHLORIDE 20 MEQ TAB.ER.PRT PO SCH ×2 (08:00→16:51)
[2018-05-09] MEDS: DOCUSATE 100 MG CAPSULE PO SCH ×2 (09:00→20:20)
[2018-05-09] MEDS: POLYETHYLENE GLYCOL 17 GM PACKET PO SCH (09:00)
[2018-05-09] MEDS: D5%-0.45% NACL+KCL 10MEQ 1,000 ML IV SCH (09:00)
[2018-05-09] MEDS: CHOLECALCIFEROL 1,000 UNIT TABLET PO SCH (09:00)
[2018-05-09] MEDS: MULTIVITAMINS/MINERALS TABLET PO SCH (09:00)
[2018-05-09] MEDS: INSULIN LISPRO 100 UNITS/ML, PEN SQ-INSULIN SCH ×4 (09:52→21:32)
[2018-05-09] MEDS: GABAPENTIN 300 MG CAPSULE PO SCH ×3 (12:46→20:20)
[2018-05-09] MEDS: ISOSORBIDE DINITRATE 10 MG TABLET PO SCH (12:46)
[2018-05-09] MEDS: CLOPIDOGREL 75 MG TABLET PO SCH (13:24)
[2018-05-09] MEDS: morphine SULFATE 10 MG/ML, 1ML IVPush PRN ×2 (13:24→20:20)
[2018-05-09] MEDS: ERTAPENEM 1 GM in SODIUM CHLORIDE 0.9% 50 ML IV SCH (17:25)
[2018-05-09 19:33] VITALS: BP 90/52
[2018-05-09] MEDS: ATORVASTATIN 40 MG TABLET PO SCH (20:20)
[2018-05-09] MEDS: AMITRIPTYLINE 25 MG TABLET PO SCH (20:20)
[2018-05-10 01:47] VITALS: BP 95/60
[2018-05-10] MEDS: ENOXAPARIN 30 MG/0.3 ML SQ SCH ×2 (05:57→18:00)
[2018-05-10] MEDS: METOPROLOL TARTRATE 25 MG TABLET PO SCH ×3 (05:58→18:00)
[2018-05-10 06:24] LABS: BASOPHILS # (AUTO) 0.09 x10^3/uL (0-0.1); BASOPHILS % (AUTO) 1 % (0-1); EOSINOPHILS # (AUTO) 0.16 x10^3/uL (0-0.4); EOSINOPHILS % (AUTO) 1 % (1-7); LYMPHOCYTES % (AUTO) 11 % (22-44); MD NO; MEAN CORPUSCULAR HEMOGLOBIN 29.1 pg (27.5-34.5); MEAN CORPUSCULAR HGB CONC 34.2 g/dL (33.2-36.2); MEAN PLATELET VOLUME 6.3 fL (7.4-10.4); MONOCYTES # (AUTO) 0.67 x10^3/uL (0.2-0.8); MONOCYTES % (AUTO) 5 % (2-9); NEUTROPHILS # (AUTO) 10.78 x10^3/uL (1.8-6.8); NEUTROPHILS % (AUTO) 82 % (42-75); PLATELET COUNT 503 x10^3/uL (130-400); RED BLOOD COUNT 4.41 x10^6/uL (4.38-5.82); RED CELL DISTRIBUTION WIDTH 14.1 % (9.4-14.8)
[2018-05-10 06:29] LABS: CHLORIDE 101 mmol/L (98-107)
[2018-05-10 06:44] LABS: ANION GAP 8 mmol/L (5-15); CALCIUM 8.6 mg/dL (8.5-10.1); CREATININE 0.72 mg/dL (0.7-1.3)
[2018-05-10] MEDS: D5%-0.45% NACL+KCL 10MEQ 1,000 ML IV SCH (07:00)
[2018-05-10] MEDS: INSULIN LISPRO 100 UNITS/ML, PEN SQ-INSULIN SCH ×4 (07:40→21:15)
[2018-05-10] MEDS: POTASSIUM CHLORIDE 20 MEQ TAB.ER.PRT PO SCH ×2 (08:00→17:00)
[2018-05-10] MEDS ORDERED: hydrOXyzine 50MG TABLET PO PRN ×2 (08:30→16:30)
[2018-05-10] MEDS: ASPIRIN 81 MG TABLET CHEW PO SCH (09:00)
[2018-05-10] MEDS: POLYETHYLENE GLYCOL 17 GM PACKET PO SCH (09:00)
[2018-05-10] MEDS: GABAPENTIN 300 MG CAPSULE PO SCH ×3 (09:00→20:48)
[2018-05-10] MEDS: LISINOPRIL 5 MG TABLET PO SCH (09:00)
[2018-05-10] MEDS: DOCUSATE 100 MG CAPSULE PO SCH ×2 (09:00→20:48)
[2018-05-10] MEDS: MULTIVITAMINS/MINERALS TABLET PO SCH (09:00)
[2018-05-10] MEDS ORDERED: HYDROXYZINE MC SCH (09:00)
[2018-05-10] MEDS: CLOPIDOGREL 75 MG TABLET PO SCH (09:00)
[2018-05-10] MEDS: CHOLECALCIFEROL 1,000 UNIT TABLET PO SCH (09:00)
[2018-05-10] MEDS: metFORMIN 500 MG TABLET PO SCH ×2 (09:00→17:00)
[2018-05-10] MEDS ORDERED: [UNRECOGNIZED DRUG - OTHER] PO SCH (09:00)
[2018-05-10] MEDS ORDERED: [UNRECOGNIZED DRUG - REMARK] MC SCH ×2 (09:00)
[2018-05-10] MEDS: ISOSORBIDE DINITRATE 10 MG TABLET PO SCH (09:00)
[2018-05-10] MEDS: ERTAPENEM 1 GM in SODIUM CHLORIDE 0.9% 50 ML IV SCH (15:00)
[2018-05-10] MEDS: VANCOMYCIN 1,200 MG in SODIUM CHLORIDE 0.9% 250 ML IV SCH (16:00)
[2018-05-10 20:46] VITALS: BP 130/80
[2018-05-10] MEDS: AMITRIPTYLINE 25 MG TABLET PO SCH (20:47)
[2018-05-10] MEDS: DIVALPROEX 250 MG TABLET.DR PO SCH (20:47)
[2018-05-10] MEDS: ATORVASTATIN 40 MG TABLET PO SCH (20:47)
[2018-05-11 01:32] VITALS: BP 134/69
[2018-05-11] MEDS: D5%-0.45% NACL+KCL 10MEQ 1,000 ML IV SCH (03:19)
[2018-05-11 05:41] LABS: CHLORIDE 100 mmol/L (98-107)
[2018-05-11 05:45] LABS: ANION GAP 7 mmol/L (5-15); CREATININE 0.63 mg/dL (0.7-1.3)
[2018-05-11 05:49] LABS: BASOPHILS # (AUTO) 0.08 x10^3/uL (0-0.1); BASOPHILS % (AUTO) 1 % (0-1); EOSINOPHILS # (AUTO) 0.13 x10^3/uL (0-0.4); EOSINOPHILS % (AUTO) 1 % (1-7); LYMPHOCYTES # (AUTO) 1.65 x10^3/uL (1-3.4); LYMPHOCYTES % (AUTO) 15 % (22-44); MD NO; MEAN CORPUSCULAR HEMOGLOBIN 29.1 pg (27.5-34.5); MEAN CORPUSCULAR HGB CONC 34.4 g/dL (33.2-36.2); MEAN CORPUSCULAR VOLUME 84.8 fL (81-97); MONOCYTES # (AUTO) 0.61 x10^3/uL (0.2-0.8); MONOCYTES % (AUTO) 6 % (2-9); NEUTROPHILS # (AUTO) 8.55 x10^3/uL (1.8-6.8); NEUTROPHILS % (AUTO) 78 % (42-75); PLATELET COUNT 599 x10^3/uL (130-400); RED BLOOD COUNT 4.36 x10^6/uL (4.38-5.82); RED CELL DISTRIBUTION WIDTH 13.8 % (9.4-14.8)
[2018-05-11] MEDS: ENOXAPARIN 30 MG/0.3 ML SQ SCH ×2 (06:27→18:37)
[2018-05-11] MEDS: INSULIN LISPRO 100 UNITS/ML, PEN SQ-INSULIN SCH ×4 (07:00→21:50)
[2018-05-11] MEDS: POTASSIUM CHLORIDE 20 MEQ TAB.ER.PRT PO SCH ×2 (08:00→18:31)
[2018-05-11] MEDS: CHOLECALCIFEROL 1,000 UNIT TABLET PO SCH (09:00)
[2018-05-11] MEDS: POLYETHYLENE GLYCOL 17 GM PACKET PO SCH (09:00)
[2018-05-11] MEDS: DOCUSATE 100 MG CAPSULE PO SCH ×2 (09:00→21:50)
[2018-05-11] MEDS: MULTIVITAMINS/MINERALS TABLET PO SCH (09:00)
[2018-05-11] MEDS: METOPROLOL TARTRATE 25 MG TABLET PO SCH ×2 (09:00→18:31)
[2018-05-11] MEDS: DIVALPROEX 250 MG TABLET.DR PO SCH ×2 (13:30→20:59)
[2018-05-11] MEDS: LISINOPRIL 5 MG TABLET PO SCH (13:30)
[2018-05-11] MEDS: CLOPIDOGREL 75 MG TABLET PO SCH (13:31)
[2018-05-11] MEDS: GABAPENTIN 300 MG CAPSULE PO SCH ×3 (13:35→20:59)
[2018-05-11] MEDS: ASPIRIN 81 MG TABLET CHEW PO SCH (13:35)
[2018-05-11] MEDS: metFORMIN 500 MG TABLET PO SCH ×2 (13:35→18:30)
[2018-05-11] MEDS: ISOSORBIDE DINITRATE 10 MG TABLET PO SCH (13:35)
[2018-05-11] MEDS: OXYcodone/APAP 5/325MG TABLET PO PRN (13:36)
[2018-05-11] MEDS: ERTAPENEM 1 GM in SODIUM CHLORIDE 0.9% 50 ML IV SCH (15:00)
[2018-05-11 19:45] VITALS: BP 133/72
[2018-05-11] MEDS: AMITRIPTYLINE 25 MG TABLET PO SCH (20:59)
[2018-05-11] MEDS: ATORVASTATIN 40 MG TABLET PO SCH (20:59)
[2018-05-12 00:34] VITALS: BP 95/64
[2018-05-12 06:22] LABS: BASOPHILS # (AUTO) 0.05 x10^3/uL (0-0.1); BASOPHILS % (AUTO) 0 % (0-1); EOSINOPHILS # (AUTO) 0.21 x10^3/uL (0-0.4); EOSINOPHILS % (AUTO) 1 % (1-7); LYMPHOCYTES # (AUTO) 2.11 x10^3/uL (1-3.4); LYMPHOCYTES % (AUTO) 14 % (22-44); MD NO; MEAN CORPUSCULAR HGB CONC 33.8 g/dL (33.2-36.2); MEAN CORPUSCULAR VOLUME 85.7 fL (81-97); MEAN PLATELET VOLUME 6.2 fL (7.4-10.4); MONOCYTES # (AUTO) 0.91 x10^3/uL (0.2-0.8); MONOCYTES % (AUTO) 6 % (2-9); NEUTROPHILS # (AUTO) 11.81 x10^3/uL (1.8-6.8); NEUTROPHILS % (AUTO) 78 % (42-75); PLATELET COUNT 719 x10^3/uL (130-400); RED BLOOD COUNT 4.42 x10^6/uL (4.38-5.82); RED CELL DISTRIBUTION WIDTH 13.8 % (9.4-14.8)
[2018-05-12 06:31] LABS: ANION GAP 8 mmol/L (5-15); CALCIUM 9.5 mg/dL (8.5-10.1); CHLORIDE 101 mmol/L (98-107)
[2018-05-12] MEDS: METOPROLOL TARTRATE 25 MG TABLET PO SCH ×2 (06:32→17:43)
[2018-05-12 06:33] LABS: CREATININE 0.88 mg/dL (0.7-1.3)
[2018-05-12] MEDS: ENOXAPARIN 30 MG/0.3 ML SQ SCH ×2 (06:33→17:43)
[2018-05-12] MEDS: INSULIN LISPRO 100 UNITS/ML, PEN SQ-INSULIN SCH ×4 (07:00→19:50)
[2018-05-12 08:00] VITALS: BP 117/74
[2018-05-12] MEDS: metFORMIN 500 MG TABLET PO SCH ×2 (08:00→17:16)
[2018-05-12] MEDS: POTASSIUM CHLORIDE 20 MEQ TAB.ER.PRT PO SCH ×2 (08:00→17:00)
[2018-05-12] MEDS: CLOPIDOGREL 75 MG TABLET PO SCH (09:00)
[2018-05-12] MEDS: ASPIRIN 81 MG TABLET CHEW PO SCH (09:00)
[2018-05-12] MEDS: ISOSORBIDE DINITRATE 10 MG TABLET PO SCH (09:00)
[2018-05-12] MEDS: DIVALPROEX 250 MG TABLET.DR PO SCH ×2 (09:00→21:44)
[2018-05-12] MEDS: CHOLECALCIFEROL 1,000 UNIT TABLET PO SCH (09:00)
[2018-05-12] MEDS: MULTIVITAMINS/MINERALS TABLET PO SCH (09:00)
[2018-05-12] MEDS: LISINOPRIL 5 MG TABLET PO SCH (09:00)
[2018-05-12] MEDS: POLYETHYLENE GLYCOL 17 GM PACKET PO SCH (09:00)
[2018-05-12] MEDS: GABAPENTIN 300 MG CAPSULE PO SCH ×3 (09:00→21:44)
[2018-05-12] MEDS: DOCUSATE 100 MG CAPSULE PO SCH ×2 (09:00→21:45)
[2018-05-12 13:58] VITALS: BP 89/50
[2018-05-12] MEDS: ERTAPENEM 1 GM in SODIUM CHLORIDE 0.9% 50 ML IV SCH (14:55)
[2018-05-12] MEDS: D5%-0.45% NACL+KCL 10MEQ 1,000 ML IV SCH (17:00)
[2018-05-12 18:53] VITALS: BP 110/70
[2018-05-12] MEDS: ATORVASTATIN 40 MG TABLET PO SCH (21:44)
[2018-05-12] MEDS: AMITRIPTYLINE 25 MG TABLET PO SCH (21:45)
[2018-05-13 00:43] VITALS: BP 109/73
[2018-05-13] MEDS: ACETAMINOPHEN 325 MG TABLET PO PRN (02:13)
[2018-05-13] MEDS: ENOXAPARIN 30 MG/0.3 ML SQ SCH (05:43)
[2018-05-13] MEDS: METOPROLOL TARTRATE 25 MG TABLET PO SCH (05:43)
[2018-05-13 06:10] LABS: CHLORIDE 104 mmol/L (98-107)
[2018-05-13 06:15] LABS: ANION GAP 10 mmol/L (5-15); CALCIUM 8.7 mg/dL (8.5-10.1); CREATININE 0.66 mg/dL (0.7-1.3)
[2018-05-13] MEDS: INSULIN LISPRO 100 UNITS/ML, PEN SQ-INSULIN SCH ×2 (07:00→11:00)
[2018-05-13 07:21] VITALS: BP 117/74
[2018-05-13] MEDS: POTASSIUM CHLORIDE 20 MEQ TAB.ER.PRT PO SCH (08:00)
[2018-05-13] MEDS: metFORMIN 500 MG TABLET PO SCH (08:00)
[2018-05-13] MEDS: DOCUSATE 100 MG CAPSULE PO SCH (09:00)
[2018-05-13] MEDS: ASPIRIN 81 MG TABLET CHEW PO SCH (09:00)
[2018-05-13] MEDS: LISINOPRIL 5 MG TABLET PO SCH (09:00)
[2018-05-13] MEDS: ISOSORBIDE DINITRATE 10 MG TABLET PO SCH (09:00)
[2018-05-13] MEDS: CHOLECALCIFEROL 1,000 UNIT TABLET PO SCH (09:00)
[2018-05-13] MEDS: MULTIVITAMINS/MINERALS TABLET PO SCH (09:00)
[2018-05-13] MEDS: CLOPIDOGREL 75 MG TABLET PO SCH (09:00)
[2018-05-13] MEDS: GABAPENTIN 300 MG CAPSULE PO SCH (09:00)
[2018-05-13] MEDS: POLYETHYLENE GLYCOL 17 GM PACKET PO SCH (09:00)
[2018-05-13] MEDS: DIVALPROEX 250 MG TABLET.DR PO SCH (09:00)
[2018-05-13 11:56] VITALS: BP 119/76
[2018-05-13] MEDS: D5%-0.45% NACL+KCL 10MEQ 1,000 ML IV SCH (13:00)
== END 2018-05-13 15:53 | disposition left against medical advice (07) | DRG 853 ==
LOC: ED 04:14 → SUATTDRO 04:35 → EDIP 04:36 → 5SO 05:35 → 4EST 05-07 06:20
PROVIDERS: ADMIT Hospitalist; ATTEND Hospitalist
PROC: 0QBP0ZZ Excision of Left Metatarsal, Open Approach (ICD-10-PCS; 2018-05-07)
PROC: 0QUP0JZ Supplement Left Metatarsal with Synthetic Substitute, Open Approach (ICD-10-PCS; principal; 2018-05-07 15:30)
DX: A41.9 Sepsis, unspecified organism (principal); E11.00 Type 2 diabetes mellitus with hyperosmolarity without nonketotic hyperglycemic-hyperosmolar coma (NKHHC); M86.172 Other acute osteomyelitis, left ankle and foot; E87.2 Acidosis; E44.0 Moderate protein-calorie malnutrition; L97.528 Non-pressure chronic ulcer of other part of left foot with other specified severity; E11.65 Type 2 diabetes mellitus with hyperglycemia; E11.621 Type 2 diabetes mellitus with foot ulcer; E11.51 Type 2 diabetes mellitus with diabetic peripheral angiopathy without gangrene; E11.69 Type 2 diabetes mellitus with other specified complication; Z68.21 Body mass index [BMI] 21.0-21.9, adult; E55.9 Vitamin D deficiency, unspecified; E78.5 Hyperlipidemia, unspecified; F60.9 Personality disorder, unspecified; F94.0 Selective mutism; I10 Essential (primary) hypertension; Z53.21 Procedure and treatment not carried out due to patient leaving prior to being seen by health care provider; I25.10 Atherosclerotic heart disease of native coronary artery without angina pectoris; J44.9 Chronic obstructive pulmonary disease, unspecified; B96.4 Proteus (mirabilis) (morganii) as the cause of diseases classified elsewhere; B95.0 Streptococcus, group A, as the cause of diseases classified elsewhere; K59.00 Constipation, unspecified; Z86.14 Personal history of Methicillin resistant Staphylococcus aureus infection; Z87.891 Personal history of nicotine dependence; I25.2 Old myocardial infarction; Z89.439 Acquired absence of unspecified foot; Z91.19 Patient's noncompliance with other medical treatment and regimen; Z95.1 Presence of aortocoronary bypass graft; Z95.5 Presence of coronary angioplasty implant and graft; Z88.0 Allergy status to penicillin; Z23 Encounter for immunization; Z88.5 Allergy status to narcotic agent; Z88.8 Allergy status to other drugs, medicaments and biological substances; Z89.432 Acquired absence of left foot
CPT/HCPCS: 36415; 70450; 74022; 80048; 80053; 80202; 81001; 82010; 82803; 82962; 83036; 83735; 83930; 84100; 84145; 84484; 85025; 85520; 85651; 86140; 87040; 87070; 87075; 87077; 87147; 87186; 87205; 90656; 93005; 93306; 93880; 93922; 93925; 96365; 96372; A9585; G0378; J0744; J1170; J1335; J1650; J2185; J2250; J2704; J3010; J3370; J3480; Q0162; J1815; J2270; J2370; J7030; J7040; J7050; Q4100; Q4118